=== PATIENT | male | born 1955 | race African-American/Black ===

== ENCOUNTER 2020-07-17 09:46 | Outpatient (CLI) | payer MEDICARE, MEDICAID ==
[2020-07-17 13:51] LABS: #Monocytes 0.7 10x3/uL (0.0-1.1); #Neutrophils 3.3 10x3/uL (1.5-8.4); %Basophils 0.4 % (0.0-2.0); %Eosinophils 0.2 % (0.0-6.0); %Lymphocytes 27.3 % (18.0-47.0); %Monocytes 12.5 % (0.0-10.0); %Neutrophils 59.2 % (40.0-75.0); Mean Corpuscular Hemoglobin 26.8 pg (27.0-33.0); Mean Corpuscular Volume 83.8 fl (81.2-95.1); Mean Platelet Volume 10.5 fl (7.4-10.4); Platelet Count 325 10x3/uL (150-450); RBC Distribution Width 14.1 % (11.5-14.5); White Blood Cell (WBC) Count 5.5 10x3/uL (3.5-10.5)
[2020-07-17 14:12] LABS: Anion Gap 11 mmol/L (10-20); BUN (Urea Nitrogen) 12 mg/dL (8.4-25.7); Calc. Creatinine Clearance 0 mL/min (70-130); Calcium 8.6 mg/dL (7.8-10.44); Carbon Dioxide 25 mmol/L (23-31); Chloride 108 mmol/L (98-107); Glucose 83 mg/dL (80-115); Potassium 4.2 mmol/L (3.5-5.1); Sodium 140 mmol/L (136-145)
[2020-07-18 01:54] LABS: SARS-CoV-2 PCR by NAA Not Detected (NotDetected)
== END 2020-07-17 09:47 | disposition home or self-care (01) ==
LOC: LABBT 09:46
PROVIDERS: ATTEND Orthopaedic Surgery
DX: Z01.818 Encounter for other preprocedural examination (principal); Z20.822 Contact with and (suspected) exposure to COVID-19
CPT/HCPCS: 80048; 85025; 93005; U0003; U0005; 87635; 93010

== ENCOUNTER 2020-07-20 05:39 | Day surgery (SDC) | payer MEDICARE, MEDICAID ==
[2020-07-20] MEDS ORDERED: Midazolam HCl 2 mg/2 ml Vial ONE (06:40)
[2020-07-20] MEDS ORDERED: Fentanyl 100 MCG/2 ML VIAL ONE ×2 (06:40→07:23)
[2020-07-20] MEDS ORDERED: Sodium Chloride 0.9% 10 ML ONE (06:42)
[2020-07-20] MEDS ORDERED: Fentanyl 100 MCG/2 ML VIAL IV PRN (07:48)
[2020-07-20] MEDS ORDERED: traMADol HCl 50 MG TAB PO PRN ×2 (08:00)
[2020-07-20] MEDS ORDERED: HYDROcodone/Acetaminophen 10/325 mg Tablet PO PRN ×2 (08:00)
[2020-07-20] MEDS ORDERED: Phenylephrine 10 MG/ML VIAL ONE (08:00)
[2020-07-20] MEDS ORDERED: Promethazine HCl 25 MG/ML VIAL IM PRN (08:00)
[2020-07-20] MEDS ORDERED: Zolpidem Tartrate 5 MG TAB PO PRN (08:00)
[2020-07-20] MEDS ORDERED: Ondansetron PF 4 MG/2 ML Vial IVP PRN (08:00)
[2020-07-20] MEDS ORDERED: Ropivacaine 0.2% 550 ML 550 ML NERVE BLCK SCH (08:00)
--- NOTE | 2020-07-20 09:31 | OP ---
DATE OF PROCEDURE: 07/20/2020 TITLE OF PROCEDURE: Left open rotator cuff repair and open biceps tenodesis. ALTERNATIVE MEDICINE PRACTITIONER: Ethel Holman PA-C. The communications assistant/co-surgeon was present through the entire procedure and was responsible for providing exposure, tissue retraction and any necessary limb or tissue manipulation required to obtain necessary reduction or hardware placement. The communications assistant/co-surgeon also provided bleeding control, tissue closure, and suturing in conjunction with the primary surgeon. BLOOD LOSS: Less than 100. SPECIMENS: None. DRAINS: None. COMPLICATIONS: None. DESCRIPTION OF PROCEDURE: After appropriate consent was obtained, the patient was taken to the operating room, where general anesthesia was induced. He was placed in beach chair position. Left shoulder was prepped and draped in usual sterile fashion. I made an anterior deltoid-splitting approach, keeping a good thick cuff of deltoid for repair back to the acromion at the end of the procedure. I performed anterior-inferior acromioplasty. Bursal tissue was excised. Irrigation was performed. He had a very large L-shaped rotator cuff tear. I freshened up the margins of the tear, freshened up the greater tuberosity. I examined the biceps tendon, it was completely covered in synovitis and had some longitudinal fissures. I transected the biceps tendon at the superior glenoid tubercle and then prepared it Bio-Tenodesis screw insertion with a Krackow stitch through the proximal 25 mm about a 6, I drilled a 7 hole, placed a 7 Bio-Tenodesis screw in the groove securing the biceps. Attention turned to the rotator cuff. The medial portion of the tear was repaired using cottony Dacron suture 1 mm tape. I converged the tear and then converted this into just a typical simple large tear and placed two suture anchors in the bloody patch of the greater tuberosity, passed 4 sutures with a Adan-Mata technique with a good watertight repair. I then passed these sutures and the cottony Dacron sutures, which were fixing the split portion of the tear through a lateral row self-punching SwiveLock anchors for double row repair with excellent watertight repair of the rotator cuff. Irrigation was performed. Deltoid was repaired back to bone using #1 Ethibond suture. Subcu closed with 3-0 Vicryl. Skin was closed lane. Sterile dressings applied. There were no complications. Job ID: [id number]
[2020-07-20] MEDS ORDERED: PROPOFOL 200 MG/20 ML VIAL ONE (10:10)
[2020-07-20] MEDS ORDERED: Ondansetron PF 4 MG/2 ML Vial ONE (10:10)
[2020-07-20] MEDS ORDERED: Glycopyrrolate 0.2 MG/ML 5 ML SYRINGE ONE (10:10)
[2020-07-20] MEDS ORDERED: Ropivacaine 0.5% HCl/PF (150 MG/30 ML VIAL) ONE (10:10)
[2020-07-20] MEDS ORDERED: Dexamethasone 20 MG/5 ML VIAL ONE (10:10)
[2020-07-20] MEDS ORDERED: PHENYLEPHRINE-NS 100 MCG/ML 10 ML SYRINGE ONE (10:10)
[2020-07-20] MEDS ORDERED: Lidocaine 1% PF 5 ML VIAL ONE (10:10)
[2020-07-20] MEDS ORDERED: Rocuronium Bromide 10 MG/ML (10ML VIAL) ONE (10:10)
[2020-07-20] MEDS ORDERED: HYDROcodone/Acetaminophen 5/325 mg Tablet ONE (10:36)
== END 2020-07-20 11:45 | disposition home or self-care (01) ==
LOC: SDC 05:39
PROVIDERS: ATTEND Orthopaedic Surgery
PROC: 0LQ20ZZ Repair Left Shoulder Tendon, Open Approach (ICD-10-PCS; principal; 2020-07-20)
PROC: 0LS40ZZ Reposition Left Upper Arm Tendon, Open Approach (ICD-10-PCS; 2020-07-20)
PROC: 0RHK04Z Insertion of Internal Fixation Device into Left Shoulder Joint, Open Approach (ICD-10-PCS; 2020-07-20)
PROC: 3E0T3BZ Introduction of Anesthetic Agent into Peripheral Nerves and Plexi, Percutaneous Approach (ICD-10-PCS; 2020-07-20)
DX: S46.012A Strain of muscle(s) and tendon(s) of the rotator cuff of left shoulder, initial encounter (principal); M75.22 Bicipital tendinitis, left shoulder; G89.18 Other acute postprocedural pain; G43.909 Migraine, unspecified, not intractable, without status migrainosus; M19.90 Unspecified osteoarthritis, unspecified site; M10.9 Gout, unspecified; I10 Essential (primary) hypertension; E78.5 Hyperlipidemia, unspecified; K21.9 Gastro-esophageal reflux disease without esophagitis; Z87.891 Personal history of nicotine dependence; Z79.899 Other long term (current) drug therapy
CPT/HCPCS: 23410; 23430; 64416; 97139; A4306; C1713; J0690; J1100; J2250; J2370; J2405; J2704; J2795; J3010